=== PATIENT | male | born 1975 | race Two or more races ===

== ENCOUNTER 2025-03-08 20:13 | Emergency (ER) | payer MEDICAID, SELFPAY ==
--- NOTE | 2025-03-08 20:23 | EDNOTE_ITS ---
ED Abdominal Pain RME/HPI General Chief Complaint: Abdominal Pain Stated complaint: UPPER ABD PAIN,N/V Time seen by provider: 03/08/25 20:46 Arrival date/time: 03/08/25 20:13 RME / HPI RME / HPI narrative: See [facility] for Dr. Robbins's HPI Documentation. Related Data Previous Rx's ?Medication ?Instructions ?Recorded tramadol 50 mg tablet 50 mg PO QID #20 tabs omeprazole 20 mg capsule,delayed 20 mg PO QDAY #14 cap s 04/29/21 release acetaminophen 300 mg-codeine 30 mg 2 tab PO Q8H PRN pa in #20 tabs 03/09/25 tablet ibuprofen 800 mg tablet 800 mg PO Q8H PRN pain #30 t abs 03/09/25 ondansetron 4 mg disintegrating 4 mg PO TID PRN nausea and 03/09/25 tablet vomiting 30 days #10 tabs Allergies Allergy/AdvReac Type Severity Reaction Status Date / Time No Known Allergies Allergy Verified 03/08/25 20:14 Review of Systems Review of Systems Systems Reviewed: All systems reviewed, normal except as documented Past Medical History Social History SMOKING STATUS: Never smoker SUBSTANCE USE: does not use ED Exam Narrative Physical exam: See [facility] for Dr. Robbins's Physical Exam Documentation. Course Quality Measures none Orders Category Date Time Status Bedside COVID-19 Antigen Test NOW Care 03/08/25 20:[address] Screening NOW Care 03/08/25 20:48 Completed Saline [Insert IV] NOW Care 03/08/25 20:47 Completed Straight [In and Out Catheter] X1 Care 03/08/25 20:[address] abdomen pelvis w con Stat Exams 03/08/25 20:48 Completed US gall bladder Stat Exams 03/08/25 21:02 Completed XR chest 1V portable Stat Exams 03/08/25 20:48 Completed Amylase Stat Lab 03/08/25 20:59 Completed Bilirubin,Direct Stat Lab 03/08/25 20:59 Completed Blood Culture (Lab) Stat Lab 03/08/25 21:04 Received CBC Stat Lab 03/08/25 20:59 Completed CMP [Comprehensive Metabolic Panel] Stat Lab 03/08/25 20:59 Completed CRP [C-Reactive Protein] Stat Lab 03/08/25 20:59 Completed ESR [Sed Rate (ESR)] Stat Lab 03/08/25 20:59 Completed Influenza A & B Rapid Panel Stat Lab 03/08/25 20:55 Completed Lactate (Lactic Acid) Stat Lab 03/08/25 20:59 Completed Lipase Stat Lab 03/08/25 20:59 Completed Magnesium Stat Lab 03/08/25 20:59 Completed Procalcitonin Stat Lab 03/08/25 20:59 Completed UA, C/S IF [Urinalysis, C/S if Indicated] Stat Lab 03/08/25 21:38 Completed Acetaminophen Ivpb [Ofirmev Inj] Med 03/08/25 20:47 Discontinued 1,000 mg in 100 ml IV X1 Ketorolac Inj [Toradol Inj] Med 03/08/25 20:47 Discontinued 30 mg IVP X1 ONE Morphine* Inj Med 03/08/25 20:47 Discontinued 6 mg IV X1 ONE Ondansetron Inj [Zofran Inj] Med 03/08/25 20:47 Discontinued 4 mg IVP X1 ONE Sodium Chloride 0.9% 1000 ml [Ns] 1,000 ml Med 03/08/25 20:47 Discontinued IV 999 mls/hr cefTRIAXone/D5w 1gm IV premix [Rocephin/D5w 1gm IV Med 03/08/25 20:47 Discontinued premix] 1 gm in 50 ml IV X1 Vital Signs Vital signs: Vital Signs Temperature 102.8 F H 03/08/25 20:28 Pulse Rate 94 03/08/25 20:28 Respiratory Rate 18 03/08/25 20:28 Blood Pressure 132/82 H 03/08/25 20:28 Pulse Oximetry (%) 95 03/08/25 20:28 Oxygen Delivery Method Room Air 03/08/25 20:28 Abdominal Pain MDM MDM Narrative MDM Narrative:: This section includes all my notes and documentations, including HPI, PE, and ED course. Boni Robbins MD HPI: 50 y/o male here with upper abdominal pain and vomiting. The day before yesterday, he had a mild attack after eating greasy goat dish. And today, he reports extremely severe pain and vomiting after eating fried beings with sausages. No hematemesis or coffee-ground emesis. No rectal bleeding or tarry stools. He also reports subjective fever and chills and aches and malaise. No cough or congestion. Had normal bowel movement today and passing gas. No urinary symptoms. No other complaints. ROS: All negative except as documented in HPI. Physical Exam: General: Alert and oriented. In obvious pain. Fever noted. Eyes: Conjunctivae and lids clear. ENT: No nasal congestion. Neck: Supple. Heart: RRR. Lungs: No respiratory distress. Good air movement. No rhonchi, wheezing, rales. Abdomen: Soft with upper quadrant tenderness. Normal bowel sounds. No distension. No rebound or guarding. Back: No CVA tenderness. Skin: Warm and dry. Neuro: Alert and oriented X 3. I reviewed all diagnostic test results: My interpretation of the chest x-ray is NAD. My review of the Abdomen/Pelvis CT report is NAD. My review of the Gall Bladder US report is cholelithiasis. Blood tests and urine tests unremarkable. Covid/Influenza: Negative. At this point, diagnoses include: Gallstones Treatment here included: Zofran 4 mg IV Morphine 6 mg IV Toradol 30 mg IV Tylenol 1 G orally IVF Rocephin 1 G IV prophylactically Significant improvement noted. Recommended outpatient care. I discussed the case with our surgeon, Dr. Acosta.? About the presentation and exam and diagnostics and treatments here, including fever.? And need of further care in the hospital.? Recommended outpatient follow-up with him. Based on my best medical judgment, made decision no further evaluation or treatment indicated at this time. Patient understands and agrees to the discharge instructions customized and printed, see below. Discharge Instructions from Dr. Robbins: 1. After evaluation, your symptoms are due to gallstone(s).? You need gallbladder to help digest fatty foods. I asked Dr. Acosta, our surgeon, that you requested surgical removal of your gallbladder. He asked that you see him outpatient first. 2. To prevent future attacks, avoid all fatty and oily and greasy and buttery and dairy foods.? This usually means take out and fast food restaurants. 3. Zofran for nausea/vomiting.? Tylenol with codeine for severe pain.? Clear liquid diet for 24 hours then advance diet slowly as tolerated. Ibuprofen 800 mg every 6-8 hours today and tomorrow then as needed for fever. 4. See Dr. Acosta on 03/10/2025 for recheck and further care. Ask to review all test results and official radiology reports, to make sure you receive all necessary follow-ups and monitoring. [address] [place] [address] 5. Seek immediate medical care with intolerable pain, fever, or with any concerns. Boni Robbins MD Patient data External records reviewed:: [facility] previous records (Reviewed prior ED records from 09/12/22. Patient was seen for Urinary tract infection.) Clinical information provided by:: patient Social determinants that could affect healthcare access:: none Patient has the following chronic illnesses:: None reported How is presenting disease/condition affected by chronic disease/condition?: no chronic disease Evaluation data The following diagnostics were reviewed and interpreted by me:: lab results and radiology exam(s) Lab and/or radiology exams considered but not ordered:: None Interpretation Summary: I reviewed all diagnostic test results: My interpretation of the chest x-ray is NAD. My review of the Abdomen/Pelvis CT report is NAD. My review of the Gall Bladder US report is cholelithiasis. Blood tests and urine tests unremarkable. Covid/Influenza: Negative. Medications / Prescriptions Medications or Prescriptions considered but not ordered:: None Medication administrations:: Medication Administration History Discontinued Medications Ceftriaxone Sodium/Dextrose (Rocephin/D5w 1gm Iv Premix) 1 gm in 50 mls @ 100 mls/hr IV X1 ONE Stop: 03/08/25 21:16 Last Infusion: 03/08/25 21:33 Dose: Infused Documented By: Admin: 03/08/25 21:03 Dose: 100 mls/hr Documented By: GARRY Sodium Chloride (Ns) 1,000 mls @ 999 mls/hr IV .Q1H1M ONE Stop: 03/08/25 21:47 Last Infusion: 03/08/25 22:07 Dose: Infused Documented By: Admin: 03/08/25 21:06 Dose: 999 mls/hr Documented By: GARRY Acetaminophen (Ofirmev Inj) 1,000 mg in 100 mls @ 250 mls/hr IV X1 ONE Stop: 03/08/25 21:10 Last Infusion: 03/08/25 21:01 Dose: Infused Documented By: Admin: 03/08/25 21:01 Dose: 250 mls/hr Documented By: GARRY Ketorolac Tromethamine (Ketorolac Inj 30 Mg/Ml Vial) 30 mg IVP X1 ONE Stop: 03/08/25 20:48 Last Admin: 03/08/25 21:01 Dose: 30 mg Documented By: GARRY Morphine Sulfate (Morphine Sulf Inj 4 Mg/Ml Vial) 6 mg IV X1 ONE Stop: 03/08/25 20:48 Last Admin: 03/08/25 21:01 Dose: 6 mg Documented By: GARRY Ondansetron HCl (Ondansetron Inj 2 Mg/Ml Inj 2 Ml) 4 mg IVP X1 ONE; Protocol Stop: 03/08/25 20:48 Last Admin: 03/08/25 21:00 Dose: 4 mg Documented By: GARRY Treatment here included: Zofran 4 mg IV Morphine 6 mg IV Toradol 30 mg IV Tylenol 1 G orally IVF Rocephin 1 G IV prophylactically Consultations Consultation(s) initiated? (list below): Yes Consultation #1 (Physician, Specialty, Details): I discussed the case with our surgeon, Dr. Acosta.? About the presentation and exam and diagnostics and treatments here, including fever.? And need of further care in the hospital.? Recommended outpatient follow-up with him. Diagnosis Differential diagnosis abdominal pain: abdominal pain, calculus of kidney, constipation, diverticulitis, gastroenteritis, pancreatitis, small bowel obstruction and other (Cholecystitis, Gastritis) Most likely diagnosis given after review of the tests above:: Gallstones Admission Indicated Admission indicated?: not indicated Explain why admission is indicated or not indicated:: I discussed the case with our surgeon, Dr. Acosta.? About the presentation and exam and diagnostics and treatments here, including fever.? And need of further care in the hospital.? Recommended outpatient follow-up with him. Admission Request Was there a request for admission?: No Disposition Plan Disposition Plan: Discharge Discharge Attestation Discharge Attestation: The patient and all family members were given an opportunity to ask questions and understood the discharge instructions. Discharge instructions specifically effects, indications for sooner follow up or return to the emergency department, and the expected course of current diagnosis. Patient condition: Stable Discharge Plan Plan Patient Disposition: HOME (Self Care) Prescriptions/Referrals Prescriptions/Med Rec: New ibuprofen 800 mg tablet 800 mg PO Q8H PRN (Reason: pain) Qty: 30 0RF acetaminophen-codeine 300-30 mg tablet 2 tab PO Q8H MDD 6 PRN (Reason: pain) Qty: 20 0RF ondansetron 4 mg tablet,disintegrating 4 mg PO TID PRN (Reason: nausea and vomiting) 30 Days Qty: 10 0RF No Action tramadol 50 mg tablet 50 mg PO QID Qty: 20 0RF omeprazole 20 mg capsule,delayed release(DR/EC) 20 mg PO QDAY Qty: 14 0RF Referrals: No Primary/Family,Physician [Primary Care Provider] - In 1 week Problem List Clinical Impression: Gallstones Patient/Caregiver Discharge Instructions Discharge Activity: activity as tolerated Education Materials: ED Gallstones with Biliary Colic Additional Instructions: Discharge Instructions from Dr. Robbins: 1. After evaluation, your symptoms are due to gallstone(s).? You need gallbladder to help digest fatty foods. I asked Dr. Acosta, our surgeon, that you requested surgical removal of your gallbladder. He asked that you see him outpatient first. 2. To prevent future attacks, avoid all fatty and oily and greasy and buttery and dairy foods.? This usually means take out and fast food restaurants. 3. Zofran for nausea/vomiting.? Tylenol with codeine for severe pain.? Clear liquid diet for 24 hours then advance diet slowly as tolerated. Ibuprofen 800 mg every 6-8 hours today and tomorrow then as needed for fever. 4. See Dr. Acosta on 03/10/2025 for recheck and further care. Ask to review all test results and official radiology reports, to make sure you receive all necessary follow-ups and monitoring. [address], [place] [address] 5. Seek immediate medical care with intolerable pain, fever, or with any concerns. Instrucciones de roland del Dr. Robbins: 1. Despu?s de la evaluaci?n, geneva s?ntomas se deben a c?lculos biliares. Necesita ves?cula biliar para digerir los alimentos grasos. Le inform? al Dr. Acosta, nuestro cirujano, que solicit? la extirpaci?n quir?rgica de la ves?cula. ?l le pidi? que humberot lo kang en consulta externa. 2. Para prevenir futuros ataques, evite todos los alimentos grasosos, aceitosos, con mantequilla y l?cteos. [place] generalmente implica comida para llevar y restaurantes de comida r?pida. 3. Zofran para las n?useas y los v?mitos. Tylenol con code?na para el dolor intenso. Dieta l?quida mateo 24 horas y luego aumente la dieta gradualmente seg?n la tolerancia. Ibuprofeno 800 mg cada 6-8 horas hoy y ma?cira, y luego seg?n sea necesario para la fiebre. 4. Consulte con el Dr. Acosta el 10/03/2025 para yong revisi?n y atenci?n adicional. Solicite la revisi?n de todos los resultados de las pruebas y los informes radiol?gicos oficiales para asegurarse de recibir todos los seguimientos y la monitorizaci?n necesarios. [address], [place], [place] [id number] 5. Busque atenci?n m?dica inmediata si presenta dolor insoportable, fiebre o cualquier inquietud. Print Language: Occitan Stand Alone Forms: [employer] Info., Patient Portal Info Letter
[2025-03-08 20:28] VITALS: BP 132/82; PULSE 94; RESP 18; TEMP 39.3; O2SAT 95; BMI 26.5
--- NOTE | 2025-03-08 20:48 | XR_ITS ---
EXAMINATION: AP chest single view TECHNIQUE: AP portable upright chest single view Date and time: March 08, 2025, 2107 hours INDICATIONS: Lower chest pain beginning 3 days ago. FINDINGS: Minimal blunting of the left lateral costophrenic angle Normal heart size No pulmonary edema The osseous ruptures are intact IMPRESSION: Minimal blunting of the left lateral costophrenic angle No pulmonary edema or lobar pneumonia
--- NOTE | 2025-03-08 20:48 | XR_ITS ---
Examination: CT abdomen with intravenous contrast CT pelvis with intravenous contrast 2-D coronal reconstructions 2-D sagittal reconstructions Date and time of exam: March 08, 2025 10:20 p.m INDICATIONS: Upper abdominal pain and fever beginning 2 days ago COMPARISON: March 20, 2024. CTDI: vol (mGy) 15.05 DLP: (mGycm) 681 Technique: Multiple axial sections of the abdomen and pelvis have been obtained. 64 slice high-resolution scanner used. 3 mm axial sections have been obtained, post intravenous injection 60 cc [id number] 2-D sagittal, coronal reconstructions obtained. Low dose protocols were performed. One or more of the following dose reduction techniques were used; automated exposure control, adjustment of the mA and/or KV according to patient size, use of iterative reconstruction technique. Findings: No focal liver or splenic lesions No gallstones No pancreatic or adrenal mass cyst Small renal cysts No renal or ureteral calculi, no hydronephrosis Aorta normal size Absent appendix No bowel obstruction Scattered colonic diverticulosis Urinary bladder intact No prostatomegaly Small fat-containing inguinal hernia Moderate osteopenia IMPRESSION: No renal or ureteral calculi, no hydronephrosis Absent appendix No bowel obstruction or diverticulitis Small fat-containing left inguinal hernia
[2025-03-08] MEDS: ONDANSETRON INJ 2 MG/ML INJ 2 ML 4 MG IVP (21:00)
[2025-03-08 21:01] VITALS: TEMP 39.3
[2025-03-08] MEDS: KETOROLAC INJ 30 MG/ML VIAL IVP (21:01)
[2025-03-08] MEDS: MORPHINE SULF INJ 4 MG/ML VIAL 6 MG IV (21:01)
[2025-03-08] MEDS: ACETAMINOPHEN IVPB 1,000 MG/100 ML VIAL 250 MG IV (21:01)
--- NOTE | 2025-03-08 21:02 | XR_ITS ---
Examination: Abdomen sonogram, Limited Date and time of exam: March 08, 2025 2120 hours INDICATIONS: Right upper abdominal pain beginning 2 days ago Technique: Real-time gibson scale transabdominal sonographic images of the upper abdomen obtained. Findings: Gallstones Gallbladder wall 0.35 cm no edema Common bile duct 0.3 cm no stones Pancreatic head 2.8 cm Liver 15.3 cm irregular contour no focal liver lesions Normal hepatopetal portal venous Patent IVC IMPRESSION: Cholelithiasis, negative for cholecystitis Normal common bile duct
[2025-03-08] MEDS: cefTRIAXone/D5w 1gm IV premix 1 GM/50 ML BAG IV (21:03)
[2025-03-08] MEDS: SODIUM CHLORIDE 0.9% 1000 ML 1,000 ML 999 ML IV (21:06)
[2025-03-08 21:11] LABS: Lactate (Lactic Acid) 1.8 mMol/L (0.4-2.0)
[2025-03-08 21:14] LABS: Basophils # (Auto) 0.0 Thou/mm3 (0.0-0.2); Basophils % (Auto) 0 % (0-2.5); Eosinophils # (Auto) 0.0 Thou/mm3 (0.0-0.5); Eosinophils % (Auto) 0 % (0-10); Hematocrit 42.9 % (41.0-53.0); Hemoglobin 14.5 g/dL (13.5-16.0); Immature Granulocytes Auto 0.02 Thou/mm3 (0.00-0.00); Lymphocytes # (Auto) 0.7 Thou/mm3 (1.0-4.8); Lymphocytes % (Auto) 13 % (10-50); Mean Corpuscular HGB Conc 33.8 g/dl (31.0-37.0); Mean Corpuscular Hemoglobin 29.9 pg (25.0-35.0); Mean Corpuscular Volume 89 fL (80-100); Monocytes # (Auto) 0.4 Thou/mm3 (0.0-0.8); Monocytes % (Auto) 8 % (0-12); Neutrophils # (Auto) 4.1 Thou/mm3 (1.8-7.7); Neutrophils % (Auto) 77 % (37-80); Nucleated Red Blood Cell # 0.00 Thou/mm3 (0.00-0.00); Nucleated Red Blood Cell % 0 /100 WBC (0); Platelet Count 189 Thou/mm3 (140-440); RDW Standard Deviation 40.8 fL (35.1-43.9); Red Blood Count 4.85 Miln/mm3 (4.50-5.90); White Blood Count 5.2 Thou/mm3 (3.8-10.6)
[2025-03-08 21:39] LABS: Alanine Aminotransferase 87 U/L (10-49); Albumin, Serum 4.7 gm/dL (3.5-5.0); Albumin/Globulin Ratio 1.5 (1.2-2.2); Alkaline Phosphatase 120 U/L (46-116); Amylase 103 U/L (30-118); Anion Gap 10 (7-16); Aspartate Amino Transferase 59 U/L (0-34); BUN/Creatinine Ratio 9 Ratio (12-20); Bilirubin,Direct 0.2 mg/dL (0.0-0.3); Bilirubin,Total 0.7 mg/dL (0.3-1.2); Blood Urea Nitrogen 9 mg/dL (9-23); Calcium 9.6 mg/dL (8.3-10.6); Calcium (Corrected) 9.6 mg/dL (8.5-10.1); Carbon Dioxide 25.6 mMol/L (20.0-31.0); Chloride 101 mMol/L (98-107); Creatinine (Component) 1.0 mg/dL (0.6-1.3); Estimated Creatinine Clearance 90.2 mL/min (>60); Globulin 3.1 gm/dL (2.3-3.5); Glucose 126 mg/dL (74-106); Lipase 54 U/L (12-53); Magnesium 1.9 mg/dL (1.6-2.6); Osmolality,Calculated 274 (275-295); Potassium 3.8 mMol/L (3.4-5.1); Sodium 137 mMol/L (136-145); Total Protein 7.8 gm/dL (5.7-8.2); eGFR > 60 See Note
[2025-03-08 21:44] LABS: Influenza A Ag Negative; Influenza B Ag Negative
[2025-03-08 21:51] LABS: C-Reactive Protein 4.5 mg/dL (0.0-0.9); Procalcitonin 0.39 ng/ml (0.0-0.49)
[2025-03-08 21:53] LABS: Collection Type, Urine Clean Catch
[2025-03-08 21:55] LABS: Sed Rate (ESR) 18 mm/hr (0-20)
[2025-03-08 22:05] VITALS: BP 106/67; PULSE 88; RESP 19; TEMP 37.8; O2SAT 92
[2025-03-08 22:05] LABS: Bacteria,Urine Rare; Bilirubin,Urine Negative (Negative); Blood,Urine Negative (Negative); Clarity,Urine Clear (Clear/Hazy); Color,Urine Yellow (Lt Yel-Yel); Culture Indicated,Urine Not Indicated; Glucose, Urine Negative (Negative); Ketones,Urine Negative (Negative); Leukocyte Esterase,Urine Negative (Negative); Nitrite,Urine Negative (Negative); PH,Urine 7.0 (5.0-7.0); Protein,Urine Trace (Neg - Trace); RBC,Urine 5 /hpf (0-3); Specific Gravity,Urine 1.024 (1.001-1.035); Squamous Epithelial Cell,Urine 1 /hpf (0-5); Urobilinogen,Urine 2.0 mg/dL (0.0-1.0); WBC,Urine < 1 /hpf (0-5)
[2025-03-09 01:32] VITALS: BP 112/70; PULSE 72; RESP 16; TEMP 37.2; O2SAT 98
== END 2025-03-09 01:34 | disposition home or self-care (01) ==
PROVIDERS: Emergency Provider Emergency Medicine
DX: K80.20 Calculus of gallbladder without cholecystitis without obstruction (principal)
CPT/HCPCS: 36415; 71045; 74177; 76705; 80053; 81001; 82150; 82248; 83605; 83690; 83735; 84145; 85025; 85652; 86140; 87040; 87502; 87811; 96361; 96365; 96375; 99284; A4649; J0131; J0696; J1885; J2270; J2405; J7030; Q9967

== ENCOUNTER 2025-04-10 10:55 | Day surgery (SDC) | payer MEDICAID, SELFPAY ==
--- NOTE | 2025-04-09 14:01 | EKG_ITS ---
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
[2025-04-09 14:04] VITALS: BMI 27.3
[2025-04-09 15:53] LABS: Basophils # (Auto) 0.1 Thou/mm3 (0.0-0.2); Basophils % (Auto) 1 % (0-2.5); Eosinophils # (Auto) 0.2 Thou/mm3 (0.0-0.5); Eosinophils % (Auto) 2 % (0-10); Hematocrit 44.2 % (41.0-53.0); Hemoglobin 14.8 g/dL (13.5-16.0); Immature Granulocytes Auto 0.02 Thou/mm3 (0.00-0.00); Lymphocytes # (Auto) 2.1 Thou/mm3 (1.0-4.8); Lymphocytes % (Auto) 31 % (10-50); Mean Corpuscular HGB Conc 33.5 g/dl (31.0-37.0); Mean Corpuscular Hemoglobin 29.4 pg (25.0-35.0); Mean Corpuscular Volume 88 fL (80-100); Monocytes # (Auto) 0.6 Thou/mm3 (0.0-0.8); Monocytes % (Auto) 9 % (0-12); Neutrophils # (Auto) 3.8 Thou/mm3 (1.8-7.7); Neutrophils % (Auto) 57 % (37-80); Nucleated Red Blood Cell # 0.00 Thou/mm3 (0.00-0.00); Nucleated Red Blood Cell % 0 /100 WBC (0); Platelet Count 284 Thou/mm3 (140-440); RDW Standard Deviation 42.9 fL (35.1-43.9); Red Blood Count 5.03 Miln/mm3 (4.50-5.90); White Blood Count 6.6 Thou/mm3 (3.8-10.6)
[2025-04-09 16:01] LABS: Alanine Aminotransferase 66 U/L (10-49); Albumin, Serum 4.9 gm/dL (3.5-5.0); Albumin/Globulin Ratio 1.8 (1.2-2.2); Alkaline Phosphatase 130 U/L (46-116); Anion Gap 9 (7-16); Aspartate Amino Transferase 39 U/L (0-34); BUN/Creatinine Ratio 12 Ratio (12-20); Bilirubin,Total 0.5 mg/dL (0.3-1.2); Blood Urea Nitrogen 12 mg/dL (9-23); Calcium 9.8 mg/dL (8.3-10.6); Calcium (Corrected) 9.8 mg/dL (8.5-10.1); Carbon Dioxide 30.4 mMol/L (20.0-31.0); Chloride 102 mMol/L (98-107); Creatinine (Component) 1.0 mg/dL (0.6-1.3); Estimated Creatinine Clearance 84.6 mL/min (>60); Globulin 2.8 gm/dL (2.3-3.5); Glucose 126 mg/dL (74-106); Osmolality,Calculated 282 (275-295); Potassium 4.0 mMol/L (3.4-5.1); Sodium 141 mMol/L (136-145); Total Protein 7.7 gm/dL (5.7-8.2); eGFR > 60 See Note
[2025-04-10] VITALS (9 sets, daily range): BP systolic 121–139; BP diastolic 80–90; PULSE 68–83; RESP 14–22; TEMP 36.3–37; O2SAT 96–100; BMI 27.3
[2025-04-10] MEDS: CEFOXITIN 2 GM in SODIUM CHLORIDE 0.9% (Popper) 50 ML IV (11:32)
--- NOTE | 2025-04-10 12:55 | SUR.PHASEI ---
pt received from OR in recovery bay 1. pt obtunded, breathing unlabored on oxymask 8l, oral airway in place. v/s stable. pt dressing to abd dermabond x4 cdi. report received from Lynn GARCIAS and Dr. Francois.
--- NOTE | 2025-04-10 12:58 | ESOP_ITS ---
Date of Procedure 04/10/25 Pre Op Diagnosis Symptomatic cholelithiasis Post Op Diagnosis Cholelithiasis with cholecystitis Procedure Laparoscopic cholecystectomy Findings Moderately distended gallbladder with gallstones and chronic cholecystitis Procedure Description Patient was brought into the operating room in supine position. After adm inistration of general endotracheal anesthesia abdomen was prepped and draped in standard surgical manner. A Veress needle was inserted through the umbilicus and pneumoperitoneum was obtained up to 15 mmHg. The Veress needle was then removed, a 5 mm infraumbilical incision was made and the 5mm trocar was inserted. Laparoscopic camera was placed. Under direct visualization a laparoscopic camera a 10 mm trocar was placed in subxiphoid and two 5 mm trocars placed in right upper quadrant. The gallbladder was identified and was noted to be moderately distended with multiple gallstones and chronic cholecystitis. It was retracted cephalad and laterally. Dissection started near the infundibulum of gallbladder where cystic duct and gallbladder junction clearly identified. The cystic duct was circumferentially dissected off the peritoneum and surrounding inflammatory tissue. The critical view of safety was clearly demonstrated. Cystic duct was then divided between 2 endoclips proximally and one distally. The cystic artery was similarly dissected and divided. The gallbladder was then from the liver bed using electrocautery. The gallbladder was then placed inside an Endo Catch and removed from the abdomen utilizing subxiphoid trocar site. The area was copiously and thoroughly washed and irrigated, all the fluid was suctioned and the suction fluid returned clear. Hemostasis achieved using electrocautery. Endoclips noted be in place and intact without any bleeding or any leakage. Hemostasis was adequate and satisfactory. The subxiphoid trocar sites fascial defect was closed with 0 Vicryl using Endo Closure device. Instruments and trocars removed, pneumoperitoneum was evacuated and the incisions closed with 4-0 Monocryl in subcuticular fashion. Instrument needle and sponge counts were all reported to be correct X2. Patient tolerated the procedure well, was extubated, breathing spontaneously and without difficulty and was transferred to postanesthesia care in stable condition. Anesthesia GETA and local Pathology / specimen Other (Gallbladder and contents) Estimated Blood Loss 20 Condition Stable Disposition PACU Surgeon Rosa Acosta MD Surgical Staff Operation Date: 04/10/25 14:30 Case Staff Anesthesiologist: Shon Francois RN First Assistant: Becca Hartman
--- NOTE | 2025-04-10 13:00 | SUR.PHASEI ---
pt has oral airway, breathing unlabored, dressing to abdomen clean, dry, and intact, VS stable, report from Faizan GARCIAS
[2025-04-10] MEDS: HYDROmorphone INJ 2 MG/ML VIAL 0.4 MG IVP ×2 (13:14→13:56)
--- NOTE | 2025-04-10 13:32 | SUR.PHASEII ---
report to Faizan GARCIAS
[2025-04-10] MEDS: fentaNYL CIT INJ 50 mCg/ML AMP 2ML 25 MCG IVP (13:49)
--- NOTE | 2025-04-10 14:20 | SUR.PHASEII ---
pt able to tolerate oral fluids without difficulty swallowing or nausea/vomiting.
--- NOTE | 2025-04-10 14:35 | SUR.PHASEII ---
pt awake and alert, breathing unlabored on room air. v/s stable. pt dressing to abd dermabond x4 cdi. pt able to ambulate to wheelchair with steady gait. d/c instructions given with family in room using service car operator Eleonora valenzuela, all questions answered. pt d/c via wheelchair with all belongings.
== END 2025-04-10 14:35 | disposition home or self-care (01) ==
PROVIDERS: PCP Family Medicine; Referring Provider Surgery; Visit Provider Surgery
PROC: 0FT44ZZ Resection of Gallbladder, Percutaneous Endoscopic Approach (ICD-10-PCS; CPT 47562; principal; 2025-04-10 14:15)
DX: K80.10 Calculus of gallbladder with chronic cholecystitis without obstruction (principal); Z01.810 Encounter for preprocedural cardiovascular examination
CPT/HCPCS: 47562; 36415; 80053; 85025; 93005; A4217; A4649; J0131; J0694; J1100; J1171; J1885; J2250; J2371; J2405; J2704; J3010; J3490; J7050